=== PATIENT | male | born 1950 | race Caucasian/White ===

== ENCOUNTER 2021-01-04 17:09 | Emergency (ER) | payer MEDICARE ==
[2021-01-04] MEDS ORDERED: Tetracaine HCl/PF 0.5% 4 ML Bottle EYELF ONE (17:26)
[2021-01-04] MEDS ORDERED: Fluorescein 1 MG Ophth Strip EYELF ONE (17:35)
--- NOTE | 2021-01-04 17:42 | EDM.PDOC ---
ED HPI GENERAL MEDICAL PROBLEM - General Chief Complaint: Eye Problems Stated Complaint: EYE ISSUES Time Seen by Provider: 01/04/21 17:15 Source of Information: Reports: Patient History Limitations: Reports: No Limitations - History of Present Illness INITIAL COMMENTS - FREE TEXT/NARRATIVE: patient presented to the ER with a c/o left eye irritation. Return it occurred yesterday and has been gradually getting worse. Admits that he was outside fishing all day - direct sun exposure - thou he was wearing sun glasses most of the times. Reports excessive tearing . no colored discharges. no fever or chills. no URTI symptoms. no h/o glaucoma or cataract Onset: Gradual Duration: Day(s): (2) - Related Data Allergies Allergy/AdvReac Type Severity Reaction Status Date / Time No Known Allergies Allergy Verified 01/04/21 17:40 Home Meds: Home Meds Hydrocort/Neomycin/Polymyxin B [Cortisporin Ophth Susp] 2 drop OP Q6H #1 bottle 01/04/21 [Rx] ED ROS GENERAL - Review of Systems Review Of Systems: See Below Constitutional: Reports: No Symptoms HEENT: Reports: Eye Discharge Respiratory: Reports: No Symptoms Cardiovascular: Reports: No Symptoms GI/Abdominal: Reports: No Symptoms Musculoskeletal: Reports: No Symptoms Skin: Reports: No Symptoms Neurological: Reports: No Symptoms ED EXAM GENERAL W FULL EYE - Physical Exam Exam: See Below Exam Limited By: No Limitations General Appearance: Alert, WD/WN, No Apparent Distress Eye Exam: Bilateral Eye: EOMI, PERRL Eyelids: Right: Normal Appearance, Left: Edema Conjunctiva & Sclera: Left: Injected Cornea Exam: Bilateral: Normal Appearance Extraocular Movements: Bilateral: Intact Pupillary Size: Bilateral: 3 mm Pupillary Reaction: Bilateral: Brisk Nose: Normal Inspection Head: Atraumatic Neck: Normal Inspection Respiratory/Chest: No Respiratory Distress Cardiovascular: Normal Peripheral Pulses Neurological: Alert, Oriented, No Motor/Sensory Deficits Psychiatric: Normal Affect Course - Re-Assessments/Exams Free Text/Narrative Re-Assessment/Exam: eye was examined directly and using fluoroscopy light - no injury to the cornea, or any FB. no discharges seems like irritation to conjunctiva eye was washed and cleaned drop was administered Departure - Departure Time of Disposition: 17:50 Disposition: Home, Self-Care 01 Condition: Good Clinical Impression: Conjunctivitis Qualifiers: Conjunctivitis type: acute Acute conjunctivitis type: unspecified Laterality: left Qualified Code(s): H10.32 - Unspecified acute conjunctivitis, left eye - Discharge Information *PRESCRIPTION DRUG MONITORING PROGRAM REVIEWED*: Not Applicable *COPY OF PRESCRIPTION DRUG MONITORING REPORT IN PATIENT REFUGIO: Not Applicable Prescriptions: Hydrocort/Neomycin/Polymyxin B [Cortisporin Ophth Susp] 2 drop OP Q6H #1 bottle Forms: ED Department Discharge Additional Instructions: - use eye drops in the affected eye every 6 hrs for 5 days - make sure to keep eyes covered and avoid the sun the next 24-48 hrs - return to the ER if symptoms got worse or any concerns - Problem List & Annotations (1) Conjunctivitis SNOMED Code(s): 3256362 Code(s): H10.9 - UNSPECIFIED CONJUNCTIVITIS Status: Acute Priority: Low Qualifiers: Conjunctivitis type: acute Acute conjunctivitis type: unspecified Laterality: left Qualified Code(s): H10.32 - Unspecified acute conjunctivitis, left eye - Problem List Review Problem List Initiated/Reviewed/Updated: Yes - Assessment/Plan Plan: - use eye drops in the affected eye every 6 hrs for 5 days - make sure to keep eyes covered and avoid the sun the next 24-48 hrs - return to the ER if symptoms got worse or any concerns
== END 2021-01-04 18:00 | disposition home or self-care (01) ==
LOC: LB.ED 17:09
DX: H10.32 Unspecified acute conjunctivitis, left eye (principal)
CPT/HCPCS: 99283